=== PATIENT | female | born 1995 | race Caucasian/White ===

== ENCOUNTER 2018-09-02 13:28 | Emergency (ER) | payer BC ==
[~2018-09-02] VITALS: Ht 157.5 cm; Wt 70.5 kg
[~2018-09-02 13:28] MED LIST: NO HOME MEDICATIONS
[2018-09-02 13:36] VITALS: TEMP 99
[2018-09-02] MEDS ORDERED: NORCO 325 MG-51 TAB PO (15:11)
[2018-09-02 16:08] VITALS: BP 112/60; PULSE 78
== END 2018-09-02 16:09 | disposition home or self-care (01) ==
LOC: COL.ER 13:28
DX: S60.222A Contusion of left hand, initial encounter (principal); W10.9XXA Fall (on) (from) unspecified stairs and steps, initial encounter; Y92.009 Unspecified place in unspecified non-institutional (private) residence as the place of occurrence of the external cause
CPT/HCPCS: J1885; Q4021

== ENCOUNTER → 2021-01-29 | Outpatient (CLI) | payer BC ==
[~2021-01-29] MED LIST changes: +NORCO 325 MG-51 TAB PO
== END ==
LOC: COL.RAD 08:00
DX: R68.81 Early satiety (principal)
CPT/HCPCS: A9541